=== PATIENT | male | born 1990 | race Caucasian/White ===

== ENCOUNTER 2017-03-09 10:55 | Emergency (ER) | payer OTHER ==
[~2017-03-09] VITALS: Ht 182.9 cm; Wt 89.0 kg
[~2017-03-09 10:55] MED LIST: CEPH500C3 PO; DOXY100T PO; HUMA100I SC
[2017-03-09] MEDS ORDERED: SODIUM CHLOR 0.9% 1000 ML INJ 1,000 ML IV SCH (11:41)
[2017-03-09 11:42] VITALS: BP 122/68; PULSE 98; RESP 16; TEMP 98.3; O2SAT 99
[2017-03-09] MEDS ORDERED: SODIUM CHLORIDE 0.9% FLUSH 10 ML FLUSH IV FLUSH PRN (11:45)
[2017-03-09] MEDS ORDERED: INSULIN HUMAN REGULAR 1,000 UNITS/10 ML VIAL SQ ONE (11:45)
--- NOTE | 2017-03-09 11:45 | PD ---
HPI Chief Complaint: Diabetic Time Seen by Provider: 11:40 Travel History International Travel<30 days: No Contact w/Intl Traveler<30days: No Traveled to known affect area: No History of Present Illness HPI Patient was requesting a refill of his insulin. Patient states he is on insulin pump and ran out of his medicine last night. Patient states he is not able is refill until tomorrow. Patient states he is concerned as his blood sugar was found to be 320 at home. Patient denies any chest pain or shortness breath, vomiting, abdominal pain, fevers, loss or change in bowel or bladder, or headaches. Patient reports associated nausea. Patient denies anything making it better or worse. Severity mild PFSH Past Medical History Blood Disorders: No Cardiovascular Problems: No Diabetes: Yes Genitourinary: Yes Headaches: No Neurologic: Yes Respiratory: No Migraines: No Seizures: No Sickle Cell Disease: No Social History Alcohol Use: No Tobacco Use: No Substance Use: No Allergies-Medications (Allergen,Severity, Reaction): Coded Allergies: No Known Allergies (Verified , 03/09/17) Reported Meds & Prescriptions Reported Meds & Active Scripts Active Reported Humalog Cartridge Inj (Insulin Lispro (Human) Inj) 300 Unit/3 Ml Soln Unknown Dose CONTINUOUS CONTINUOUS IMPLANTABLE PUMP Review of Systems Except as stated in HPI: all other systems reviewed are Neg Physical Exam Narrative GENERAL: Well-developed, well nourished, in no acute distress, and non-ill appearing. SKIN: Focused skin assessment warm and dry. HEAD: Atraumatic. Normocephalic. EYES: Pupils equal and round. EOMI. No scleral icterus. No injection or drainage. ENT: No nasal bleeding or discharge. Mucous membranes pink and moist. NECK: Trachea midline. No JVD. Supple. No nuclear rigidity. CARDIOVASCULAR: Regular rate and rhythm. No murmur appreciated. RESPIRATORY: No accessory muscle use. No respiratory distress. Clear to auscultation. Breath sounds equal bilaterally. MUSCULOSKELETAL: No obvious deformities. No clubbing. No cyanosis. No edema. Full range of motion. NEUROLOGICAL: Awake and alert. No obvious cranial nerve deficits. Motor grossly within normal limits. Normal speech. PSYCHIATRIC: Appropriate mood and affect; insight and judgment normal. Data Data Last Documented VS Vital Signs Date Time Temp Pulse Resp B/P (MAP) Pulse Ox O2 Delivery O2 Flow Rate FiO2 03/09/17 16:49 96 16 125/54 (77) 100 Room Air 03/09/17 11:42 98.3 Orders Orders Basic Metabolic Panel (Bmp) (03/09/17 11:41) Resp Blood Gas Venous (03/09/17 ) Sodium Chlor 0.9% 1000 Ml Inj (Ns 1000 M (03/09/17 11:41) Sodium Chloride 0.9% Flush (Ns Flush) (03/09/17 11:45) Insulin Human Regular Inj (Novolin R Inj (03/09/17 11:45) Iv Access Insert/Monitor (03/09/17 11:41) Ecg Monitoring (03/09/17 11:41) Oximetry (03/09/17 11:41) Resp Blood Gas Venous (03/09/17 11:47) Blood Gas Venous (Vbg) (03/09/17 11:50) Ondansetron Inj (Zofran Inj) (03/09/17 12:15) Sodium Chlor 0.9% 1000 Ml Inj (Ns 1000 M (03/09/17 12:30) Sodium Chlor 0.9% 1000 Ml Inj (Ns 1000 M (03/09/17 13:00) Insulin Human Regular Inj (Novolin R Inj (03/09/17 13:00) Insulin Human Regular Inj (Novolin R Inj (03/09/17 14:15) Basic Metabolic Panel (Bmp) (03/09/17 14:13) Insulin Aspart Inj (Novolog Inj) (03/09/17 14:30) Labs Laboratory Tests Test 03/09/17 11:50 03/09/17 11:58 03/09/17 15:20 Blood Gas Puncture Site LT BRACHIAL Blood Gas Patient Temperature 98.6 Venous Blood pH 7.35 Venous Blood Partial Pressure CO2 32 mmHg Venous Blood Partial Pressure O2 27 mmHg Venous Blood HCO3 17 mmol/L Venous Blood Oxygen Saturation 47 % Venous Blood Oxygen Content 10.5 Vol % Venous Blood Base Excess -7.7 mmol/L Oxygen Delivery Device NONE Blood Urea Nitrogen 19 MG/DL 18 MG/DL Creatinine 1.20 MG/DL 1.00 MG/DL Random Glucose 356 MG/DL 182 MG/DL Calcium Level 9.3 MG/DL 7.6 MG/DL Sodium Level 130 MEQ/L 134 MEQ/L Potassium Level 4.8 MEQ/L 4.5 MEQ/L Chloride Level 94 MEQ/L 104 MEQ/L Carbon Dioxide Level 17.3 MEQ/L 18.2 MEQ/L Anion Gap 19 MEQ/L 12 MEQ/L Estimat Glomerular Filtration Rate 74 ML/MIN 92 ML/MIN MDM Medical Decision Making Medical Screen Exam Complete: Yes Emergency Medical Condition: Yes Differential Diagnosis Hyperglycemia, uncontrolled diabetes, DKA, electrolyte abnormality, dehydration , other Narrative Course Patient seen and examined. Initial laboratory studies ordered. Patient is given IV fluids and subcutaneous insulin. 1300 patient reassessed reports feeling much better after receiving IV fluids and initial insulin. The patient additional IV fluids and some baseline laboratory findings and then repeat BMP. Discussed patient with Dr. Harrison, who saw and evaluated patient recommended the distal IV fluid and additional IV insulin. Were unable to obtain insulin from the pharmacy for his IV pump. Patient was instructed on use by Dr. Harrison. Patient restart his insulin pump prior to being discharged reports feeling much improved. Patient in no obvious distress upon re-evaluation. All pertinent laboratory result(s) discussed with patient. Any questions/concerns in reference to patient diagnosis/condition discussed and clarified prior to patient's discharge. Reinforced sheer importance of close follow up with patient 's primary physician or primary care clinic and/or occupational therapy specialist. Instructed patient to return to ED immediately, if symptoms return/worsen. Pt showed understanding of above instructions. Further instructions and recommendations were detailed in discharge paperwork. Pt ambulated without difficulty out of ED at discharge. Diagnosis Primary Impression: Type 1 diabetes mellitus with hyperglycemia, without long-term current use of insulin Patient Instructions: General Instructions, Type 1 Diabetes in Adults (ED) Additional Instructions: Follow-up with your primary care physician and/or occupational therapy specialist in 5 to 7 for reevaluation. Continue using your insulin pump as instructed by your occupational therapy specialist. Return to the emergency department if symptoms get worse. Disposition: 01 DISCHARGE HOME Condition: Stable Adelso Jones Mar 09, 2017 11:45
[2017-03-09] MEDS ORDERED: HUMA100I2 (11:47)
[2017-03-09 12:02] LABS: BLOOD GAS VENOUS BASE EXCESS -7.7 mmol/L (-2-2); BLOOD GAS VENOUS HCO3 17 mmol/L (22-26); BLOOD GAS VENOUS O2 CONTENT 10.5 Vol % (9.0-17.0); BLOOD GAS VENOUS O2 HGB SAT 47 % (70-76); BLOOD GAS VENOUS PCO2 32 mmHg (44-48); BLOOD GAS VENOUS PO2 27 mmHg (35-40); BLOOD GAS VENOUS pH 7.35 (7.360-7.400); TEMP CORR TO 98.6
[2017-03-09 12:03] LABS: CRITICAL VALUE YES; DRAW SITE LT BRACHIAL; STAT YES
[2017-03-09 12:10] VITALS: RESP 16; O2SAT 100
[2017-03-09] MEDS ORDERED: ONDANSETRON HCL 4 MG/2 ML VIAL IV PUSH ONE (12:15)
[2017-03-09] MEDS ORDERED: SODIUM CHLOR 0.9% 1000 ML INJ 1,000 ML IV ONE ×2 (12:30→13:00)
[2017-03-09 12:35] LABS: POTASSIUM 4.8 MEQ/L (3.5-5.1)
[2017-03-09 12:38] LABS: BICARBONATE 17.3 MEQ/L (21.0-32.0)
[2017-03-09] MEDS ORDERED: INSULIN HUMAN REGULAR 1,000 UNITS/10 ML VIAL IV PUSH ONE (13:00)
[2017-03-09 13:11] VITALS: BP 115/65; PULSE 101; RESP 16; O2SAT 96
[2017-03-09 14:10] VITALS: BP 111/60; PULSE 98; RESP 16; O2SAT 98
[2017-03-09] MEDS ORDERED: INSULIN HUMAN REGULAR 1,000 UNITS/10 ML VIAL OTHER ONE (14:15)
[2017-03-09] MEDS ORDERED: INSULIN ASPART 1,000 UNITS/10 ML VIAL SQ ONE (14:30)
[2017-03-09 16:04] LABS: BICARBONATE 18.2 MEQ/L (21.0-32.0)
[2017-03-09 16:07] LABS: POTASSIUM 4.5 MEQ/L (3.5-5.1)
--- NOTE | 2017-03-09 16:17 | PD ---
Physical Exam Date Seen by Provider: Mar 09, 2017 Time Seen by Provider: 16:13 Narrative The patient is a 26-year-old male who presents emergency department for hyperglycemia with nausea. The patient was initially evaluated by the mid- level provider, please refer to the initial history, physical, diagnostic evaluation, and treatment modality plan. Data Data Last Documented VS Vital Signs Date Time Temp Pulse Resp B/P (MAP) Pulse Ox O2 Delivery O2 Flow Rate FiO2 03/09/17 14:10 98 16 111/60 (77) 98 Room Air 03/09/17 11:42 98.3 Orders Orders Basic Metabolic Panel (Bmp) (03/09/17 11:41) Resp Blood Gas Venous (03/09/17 ) Sodium Chlor 0.9% 1000 Ml Inj (Ns 1000 M (03/09/17 11:41) Sodium Chloride 0.9% Flush (Ns Flush) (03/09/17 11:45) Insulin Human Regular Inj (Novolin R Inj (03/09/17 11:45) Iv Access Insert/Monitor (03/09/17 11:41) Ecg Monitoring (03/09/17 11:41) Oximetry (03/09/17 11:41) Resp Blood Gas Venous (03/09/17 11:47) Blood Gas Venous (Vbg) (03/09/17 11:50) Ondansetron Inj (Zofran Inj) (03/09/17 12:15) Sodium Chlor 0.9% 1000 Ml Inj (Ns 1000 M (03/09/17 12:30) Sodium Chlor 0.9% 1000 Ml Inj (Ns 1000 M (03/09/17 13:00) Insulin Human Regular Inj (Novolin R Inj (03/09/17 13:00) Insulin Human Regular Inj (Novolin R Inj (03/09/17 14:15) Basic Metabolic Panel (Bmp) (03/09/17 14:13) Insulin Aspart Inj (Novolog Inj) (03/09/17 14:30) Labs Laboratory Tests Test 03/09/17 11:50 03/09/17 11:58 03/09/17 15:20 Blood Gas Puncture Site LT BRACHIAL Blood Gas Patient Temperature 98.6 Venous Blood pH 7.35 Venous Blood Partial Pressure CO2 32 mmHg Venous Blood Partial Pressure O2 27 mmHg Venous Blood HCO3 17 mmol/L Venous Blood Oxygen Saturation 47 % Venous Blood Oxygen Content 10.5 Vol % Venous Blood Base Excess -7.7 mmol/L Oxygen Delivery Device NONE Blood Urea Nitrogen 19 MG/DL 18 MG/DL Creatinine 1.20 MG/DL 1.00 MG/DL Random Glucose 356 MG/DL 182 MG/DL Calcium Level 9.3 MG/DL 7.6 MG/DL Sodium Level 130 MEQ/L 134 MEQ/L Potassium Level 4.8 MEQ/L 4.5 MEQ/L Chloride Level 94 MEQ/L 104 MEQ/L Carbon Dioxide Level 17.3 MEQ/L 18.2 MEQ/L Anion Gap 19 MEQ/L 12 MEQ/L Estimat Glomerular Filtration Rate 74 ML/MIN 92 ML/MIN [facility] Medical Record Reviewed: Yes Supervised Visit with THO: Yes Interpretation(s) Laboratory Tests Test 03/09/17 11:50 03/09/17 11:58 03/09/17 15:20 Blood Gas Puncture Site LT BRACHIAL Blood Gas Patient Temperature 98.6 Venous Blood pH 7.35 Venous Blood Partial Pressure CO2 32 mmHg Venous Blood Partial Pressure O2 27 mmHg Venous Blood HCO3 17 mmol/L Venous Blood Oxygen Saturation 47 % Venous Blood Oxygen Content 10.5 Vol % Venous Blood Base Excess -7.7 mmol/L Oxygen Delivery Device NONE Blood Urea Nitrogen 19 MG/DL 18 MG/DL Creatinine 1.20 MG/DL 1.00 MG/DL Random Glucose 356 MG/DL 182 MG/DL Calcium Level 9.3 MG/DL 7.6 MG/DL Sodium Level 130 MEQ/L 134 MEQ/L Potassium Level 4.8 MEQ/L 4.5 MEQ/L Chloride Level 94 MEQ/L 104 MEQ/L Carbon Dioxide Level 17.3 MEQ/L 18.2 MEQ/L Anion Gap 19 MEQ/L 12 MEQ/L Estimat Glomerular Filtration Rate 74 ML/MIN 92 ML/MIN Differential Diagnosis Differential diagnosis includes DKA, hyperglycemia, electrolyte abnormality, noncompliance, dehydration, hyperosmolar not ketosis. Narrative Course I, Dr. Harrison, have reviewed the advance practice practitioner's documentation and am in agreement, met with the patient face to face, made the diagnosis, and the medical decision making was done by me. *My assessment and Findings: The patient is a 26-year-old male was initially evaluated by the mid-level provider. The patient states that he is an insulin- dependent diabetic, is normally on Humalog via insulin pump, states his insulin pump ran out of Humalog at 11 PM. He now complains of mild nausea, increased thirst, and some generalized weakness. The patient's blood sugar was noted to be in the 300s. The patient was mildly tachycardic at 100 when he presented to the emergency department. The initial VBG revealed normal pH, however, the bicarbonate was low and anion gap is elevated at 19. The patient was given insulin IV and subcutaneously as well as 3 L of IV fluids. We had a discussion with pharmacy, they do not have Humalog 100 units per mL, 10 mL's, however, they do have NovoLog which is an equivalent, according to the bottle was 100 units per mL, 10 mL's. The patient was reevaluated at 4:00 PM, he significantly felt improved. The patient's blood sugar was down to 182, repeat BMP revealed a gap that went from 19 at 12 and a bicarbonate that was increasing. The patient is placed back on his insulin pump will be discharged home. He is advised return if symptoms worsen or progress. Diagnosis Primary Impression: DKA (diabetic ketoacidoses) Qualified Codes: E10.10 - Type 1 diabetes mellitus with ketoacidosis without coma Patient Instructions: General Instructions Additional Instruction: Resume normal insulin pump settings at 1.4 units per hour, total 33.6 and a 24- hour as well as your normal 1-12 insulin to a carb ratio. Plenty fluids to stay hydrated. Return if symptoms worsen or progress. Med/Other Pt SpecificInfo: No Change to Meds Disposition: 01 DISCHARGE HOME Condition: Stable Pineda Harrison MD Mar 09, 2017 16:17
[2017-03-09 16:49] VITALS: BP 125/54; PULSE 96; RESP 16; O2SAT 100
== END 2017-03-09 16:51 | disposition home or self-care (01) ==
LOC: PHED 10:55
DX: E10.65 Type 1 diabetes mellitus with hyperglycemia (principal); Z79.4 Long term (current) use of insulin; Z96.41 Presence of insulin pump (external) (internal)
CPT/HCPCS: 80048; 82805; 96361; 96374; 96375; 96376; 99284; J1815; J2405; J7030